=== PATIENT | male | born 1975 | race Two or more races ===

== ENCOUNTER 2022-02-22 01:25 | Emergency (ER) | payer SELFPAY ==
[~2022-02-22] VITALS: Ht 167.6 cm; Wt 68.0 kg
[2022-02-22] MEDS ORDERED: SODIUM CHLORIDE 0.9% 1,000 ML IV ONE (02:45)
[2022-02-22] MEDS ORDERED: PROPOFOL 10 MG/ML 20 ML IV ONE (02:45)
[2022-02-22] MEDS ORDERED: KETAMINE 50mg/ML 10ml Vial (500mg/10ml) IV ONE (02:45)
[2022-02-22] MEDS ORDERED: HYDROmorphone HCL 2 MG/ML VL IV ONE ×2 (02:45→14:45)
[2022-02-22] MEDS ORDERED: PROPOFOL 100 ML IV ONE (02:52)
[2022-02-22] MEDS ORDERED: ceFAZolin 1GM/50ML 100 ML IV ONE (04:30)
[2022-02-22 10:50] LABS: Basophils # (auto) 0 10 ^3/uL (0-0.2); Basophils % (auto) 0.3 % (0.0-2.0); Eosinophils # (auto) 0 10 ^3/uL (0-0.8); Hematocrit 39.3 % (41.0-53.0); Hemoglobin 12.9 g/dL (13.5-17.5); Lymphocytes # (auto) 0.9 10 ^3/uL (0.4-5.4); Lymphocytes % (auto) 8.7 % (10.0-50.0); Mean Corpuscular Hemoglobin 27.6 pg (28.0-32.0); Mean Corpuscular Hgb Conc. 32.8 g/dL (32.0-36.0); Mean Corpuscular Volume 84.4 fL (80.0-100.0); Monocytes # (auto) 1.1 10 ^3/uL (0-1.3); Monocytes % (auto) 10.7 % (0.0-12.0); Neutrophils # (auto) 8.3 10 ^3/uL (1.6-8.6); Neutrophils % (auto) 80.3 % (37.0-80.0); Red Blood Cells 4.65 10^6/uL (4.5-5.90); White Blood Cell 10.3 10^3/uL (4.4-10.8)
[2022-02-22 11:40] LABS: INR 1.05 (0.9-1.15)
[2022-02-22 11:42] LABS: Chloride 110 mmol/L (98-107); Sodium 139 mmol/L (136-145)
[2022-02-22 11:51] LABS: Alanine Aminotransferase 66 U/L (16-61); Albumin 3.4 g/dL (3.4-5.0); Alkaline Phosphatase 54 U/L (45-117); Anion Gap 7 (5-15); Aspartate Aminotransferase 132 U/L (15-37); BUN/Creatinine Ratio 16.7; Bilirubin, Total 0.6 mg/dL (0.2-1.0); Blood Alcohol < 3.0 mg/dL (0-5); Blood Urea Nitrogen 12 mg/dL (7-18); Calcium 7.8 mg/dL (8.5-10.1); Carbon Dioxide 22 mmol/L (21-32); GFR African American 151 mL/min; GFR Non-African American 125 mL/min; Glucose 94 mg/dL (74-106)
[2022-02-22] MEDS ORDERED: ONDANSETRON HCL 4 MG/2 ML VIAL IV ONE (14:45)
[2022-02-22 16:22] VITALS: BP 120/80
[2022-02-22] MEDS ORDERED: CEPH-509 PO (16:43)
== END 2022-02-22 17:07 | disposition home or self-care (01) ==
LOC: EDBD 01:25 → ER 01:29
DX: S93.05XA Dislocation of left ankle joint, initial encounter (principal); Z20.822 Contact with and (suspected) exposure to COVID-19; X58.XXXA Exposure to other specified factors, initial encounter; Y93.89 Activity, other specified; Y92.89 Other specified places as the place of occurrence of the external cause; Y99.8 Other external cause status
CPT/HCPCS: 27840; 36415; 70450; 71045; 73600; 80053; 80320; 84484; 85025; 85610; 87426; 93005; 96361; 96365; 96375; 96376; 99285; J0690; J1170; J2405; J2704